=== PATIENT | female | born 1970 | race Caucasian/White ===

== ENCOUNTER → 2018-10-11 | Day surgery (SDC) | payer MEDICARE, MEDICAID ==
[~2018-10-11] MED LIST: LIDOCAINE 1% INJ-PF (10 MG/ML) 30 ML SDV ONE; LIDOCAINE 1%/EPINEPHRINE INJ 20 ML VIAL ONE
--- NOTE | 2018-10-13 12:36 | RADIOLOGY REPORT (SQ) ---
EXAM DESCRIPTION: STEREO BREAST BX; LEFT DIG DX MAMMO NO CHG COMPLETED DATE/TIME: 10/11/2018 1:38 pm; 10/11/2018 10:43 am REASON FOR STUDY: OTHER ABNORMAL AND INCONCLUSIVE FINDINGS ON DX IMAGING OF BREAST (R92.8); R92.8 S/ P US AND STEREO BX FOR CLIP PLACEMENTS R92.8 OTH ABN AND INCONCLUSIVE FINDINGS ON DX IMAGING OF [place] COMPARISON: Outside mammogram and ultrasound 08/31/2018 TECHNIQUE: Vacuum-assisted stereotactic-guided biopsy of the lesion in the left breast. Serial progr ess stereotactic and single digital images acquired. PROCEDURE: The procedure was discussed with the patient, including possible complications such as bleeding, infection, nondiagnostic sample or possible findings such as atypical ductal hyperplasia wh ich would require additional surgery. Possible clip placement was explained. The patient agreed t o the procedure. The patient was placed prone on the stereotactic table. The lesion in the breast was localized ster eotactically. The skin of the breast was prepped in sterile fashion. Superficial and deep local an esthesia was provided. A small incision was made in the skin and the biopsy probe was advanced to t he target. Using the vacuum-assisted core biopsy device, multiple core specimens were obtained. Continuous low dose infusion of local anesthesia was used during the procedure. A specimen radiograph was obtained. The radiograph demonstrated calcifications of concern in the bio psy tissue. Using znuijlef-be-qfhrkagu technique a pellet clip was deployed at the biopsy site. Mammographic image confirmed presence of the clip. The probe was then removed and hemostasis obtained with manua l compression. A compression bandage was applied. Postoperative instructions were explained to th e patient. POST-PROCEDURE TWO VIEW DIGITAL MAMMOGRAM: An additional two view mammogram was recorded in the [facility] mammographic suite. Marker clip is present at the stereotactic biopsy site, with a 2nd marker l aterally in the ultrasound-guided biopsy site. LIMITATIONS: None. FINDINGS: PATHOLOGY: Benign calcifications with fibroadenoma CONCORDANT: Yes. POST PROCEDURE MAMMOGRAMS FOR MARKER PLACEMENT: Yes IMPRESSION: SUCCESSFUL STEREOTACTIC-GUIDED BIOPSY OF THE LESION IN THE LEFT BREAST. BIOPSY RESULTS ARE CONCORDANT WITH IMAGING FINDINGS. BI-RADS 2, benign findings FOLLOW-UP: Please continue yearly bilateral screening mammography in July 2019 NOTIFICATION: Results were called to the patient 1230 hours 10/13/2018. She understands this is a shakila ign diagnosis, and that she should return to yearly bilateral screening mammography/tomosynthesis in July 2019. COMMENT: Patient medication list reviewed: Yes- Quality ID# [id number]:Eligible professional attests to doc umenting in the medical record they obtained, updated, or reviewed the patient's current medications. TECHNICAL DOCUMENTATION: JOB ID: [id number] [employer]- All Rights Reserved Reading location - IP/workstation name: [email or web address]
--- NOTE | 2018-10-13 12:39 | WOMENS IMAGING REPORT ---
EXAM DESCRIPTION: U/S BREAST BX COMPLETED DATE/TIME: 10/11/2018 11:01 am REASON FOR STUDY: R92.8 OTHER ABNORMAL AND INCONCLUSIVE FINDINGS ON DIAGNOSTIC IMAGING OF [place] R92.8 OTH ABN AND INCONCLUSIVE FINDINGS ON DX IMAGING OF [place] COMPARISON: Outside mammograms and ultrasound TECHNIQUE: The procedure was discussed with the patient and the patient agreed to proceed. The patient was scanned and the area of interest in the 3 o'clock position 6 cm from the nipple of th e left breast was localized. This correlates with the area of concern on prior imaging studies. This area was targeted for ultrasound-guided core biopsy. After sterile skin prep and 30 mL local lidocaine 1% for skin and deep tissue anesthesia, a 14 gauge coaxial core biopsy needle was used to obtain several cores of tissue from the lesion. Under ultraso und guidance, a ribbon clip was placed in the areas sampled. There were no immediate post-procedure complications. MAMMOGRAM: Post-procedure two view mammogram was acquired in the digital mammogram suite. The clip wa s in the expected location. No significant hematoma. Pathology yields a diagnosis of benign breast tissue with fibrocystic change and microcalcifications. No atypia or malignancy. Pathology is concordant. LIMITATIONS: None. FINDINGS: Ultrasound guided breast biopsy as described above. POST PROCEDURE MAMMOGRAMS FOR MARKER PLACEMENT: Yes IMPRESSION: ULTRASOUND-GUIDED CORE BIOPSY OF THE LEFT BREAST YIELDS A DIAGNOSIS OF benign fibrogland ular tissue with adenosis and microcalcifications. Negative for atypia or malignancy BI-RADS 2, benign findings COMMENT: Patient should return to yearly bilateral screening July 2019 COMMUNICATION: Results were called to the patient 1230 hours 10/13/2018. She understands this is a b enign diagnosis, and that she should return to yearly bilateral screening mammography/tomosynthesis i n July 2019. Patient medication list reviewed: Yes- Quality ID# [id number]:Eligible professional attests to documenting i n the medical record they obtained, updated, or reviewed the patient's current medications. TECHNICAL DOCUMENTATION: JOB ID: [id number] [email or web address]- All Rights Reserved Reading location - IP/workstation name: [email or web address]
== END ==
LOC: RAD 07:57
PROVIDERS: ATTEND Surgery
DX: N60.12 Diffuse cystic mastopathy of left breast (principal); N60.22 Fibroadenosis of left breast; R92.8 Other abnormal and inconclusive findings on diagnostic imaging of breast; R92.0 Mammographic microcalcification found on diagnostic imaging of breast
CPT/HCPCS: 88342 ×2; 88341 ×2; 88305 ×2; 19081; 19083; J3490 ×2

== ENCOUNTER → 2019-05-08 | Day surgery (SDC) | payer MEDICARE, MEDICAID ==
[~2019-05-08] MED LIST changes: +BUPIVACAINE HCL 0.5 % INJ/PF 30 ML SDV ONE; -LIDOCAINE 1%/EPINEPHRINE INJ 20 ML VIAL ONE; +LIDOCAINE 2% INJ (20 MG/ML) 20 ML MDV ONE; +METHYLPREDNISOLONE ACETATE INJ 40 MG/1 ML ML ONE
== END ==
LOC: RAD 09:18
PROVIDERS: ATTEND Pain Medicine Interventional Pain Medicine
DX: M47.816 Spondylosis without myelopathy or radiculopathy, lumbar region (principal)
CPT/HCPCS: J1030; J3490

== ENCOUNTER 2019-05-14 06:57 | Day surgery (SDC) | payer MEDICARE, MEDICAID ==
[2019-05-14 07:58] LABS: HEMOGLOBIN 10.5 g/dL (12.0-15.5); MEAN CORPUSCULAR HEMOGLOBIN 21.7 pg (27.0-33.4); MEAN CORPUSCULAR HGB CONC 31.8 g/dL (32.0-36.0); MEAN CORPUSCULAR VOLUME 68 fl (80-97); PLATELET COUNT 241 10^3/uL (150-450); RED BLOOD COUNT 4.84 10^6/uL (3.72-5.28); WHITE BLOOD COUNT 6.5 10^3/uL (4.0-10.5)
[2019-05-14 08:03] LABS: INTERNATIONAL RATION (INR) 0.91; PROTHROMBIN TIME 12.2 SEC (11.4-15.4)
[2019-05-14 08:04] LABS: PARTIAL THROMBOPLASTIN TIME 27.9 SEC (23.5-35.8)
[2019-05-14 08:15] LABS: POTASSIUM 3.9 mmol/L (3.6-5.0)
[2019-05-14] MEDS ORDERED: BUPIVACAINE HCL 0.5 % INJ/PF 30 ML SDV ONE (08:28)
[2019-05-14] MEDS ORDERED: METHYLPREDNISOLONE ACETATE INJ 40 MG/1 ML ML ONE (08:28)
[2019-05-14] MEDS ORDERED: LIDOCAINE 2% INJ (20 MG/ML) 20 ML MDV ONE (08:28)
[2019-05-14] MEDS ORDERED: MIDAZOLAM 2 MG/2 ML INJ ONE (08:55)
[2019-05-14] MEDS ORDERED: FENTANYL CITRATE INJ/PF 100 MCG/2 ML AMPUL ONE (08:55)
--- NOTE | 2019-05-14 10:21 | Operative Report ---
PREOPERATIVE DIAGNOSIS: Lumbar Spondylosis POSTOPERATIVE DIAGNOSIS: Lumbar Spondylosis PROCEDURE: Radiofrequency Ablation of medial branches - LT L3 L4 Dorsal primary ramus of L5. DATE OF PROCEDURE: May 14, 2019 ANESTHESIA: Local with IV sedation including midazolam and fentanyl COMPLICATIONS: None CONSENT: A full description of the procedure was provided including benefits as well as possible complications. All questions were answered and informed consent was given and signed. ASA guidelines for fasting were verified prior to sedation. PROCEDURE IN DETAIL The patient was brought into the fluoroscopy suite and positioned into the prone position on the fluoroscopy table and allowed to adjust to a position of comfort. A grounding pad was placed on the left thigh. The lumbar region was widely prepped with a chloraprep solution, allowed to air dry and draped in standard sterile surgical fashion. Local anesthesia was provided by 1 mL of 1 % lidocaine delivered with a 25 g needle. A 17g 100mm radiofrequency introducer needle was placed to the planned anatomic targets guided with intermittent fluoroscopy with a perpendicular approach to terminally place at the junction of the superior articular process and the transverse process of the left L4 L5 and the base of the sacral ala on the left for the L5 medial branch nerve. The stylets were removed and radiofrequency probes with a 4mm active tip were then inserted. Needle tip position of the probes was verified in the AP, oblique, and lateral views. At each site, the medial branch nerve was stimulated at 2 Hz to a maximum 1-2 volts determined to finalize safe needle and electrode placement. The patient was awake and responsive during this portion of the procedure. Each target was anesthetized with 1-2 mL of 2 % lidocaine for anesthesia for lesioning and then each target was lesioned at 80 degrees Celsius for 2 minutes and 30 seconds. Tissue impedences were noted to be between 250 and 500 Ohms. Electrodes were then removed and a solution containing 1 mL of 0.25% bupivacaine with 40 mg of Depo- Medrol was infiltrated at each site. Then needles were then removed and bandages placed over the needle placement sites, the patient then returned to the supine position on a stretcher and transported to the recovery room without hemodynamic, neurologic, or allergic reactions. Fluoroscopic images were printed for hard copy recording and digitally archived. POST PROCEDURE EVALUATION: The patient was comfortable in the recovery room. The patient is aware that pain may worsen before remitting and 4 - 6 weeks may be required prior to the onset of pain relief. IMPRESSION: 1. Technically successful left L3 L4 L5 medial branch radiofrequency neurotomy for denervation on the left without complication. 2. RTC in 2 weeks. 3. Estimated Blood Loss: None
[2019-05-14 11:33] VITALS: BP 125/71
== END 2019-05-14 11:00 | disposition home or self-care (01) ==
LOC: RAD 06:57
PROVIDERS: ATTEND Pain Medicine Interventional Pain Medicine
DX: M47.817 Spondylosis without myelopathy or radiculopathy, lumbosacral region (principal)
CPT/HCPCS: 36415; 82962; 84520; 84132; 84703; 85027; 85610; 85730; 64636; 64635; 99152; 99153; J2250; J3490 ×2; J3010; J1030

== ENCOUNTER 2019-10-09 11:51 | Emergency (ER) | payer MEDICARE, MEDICAID ==
--- NOTE | 2019-10-09 13:05 | ER Document Report ---
ED Medical Screen (RME) - General Chief Complaint: High Blood Pressure Stated Complaint: HIGH BLOOD PRESSURE, PALPITATIONS Time Seen by Provider: 10/09/19 13:01 Primary Care Provider: BETITO GARCIA MD [Primary Care Provider] - Follow up as needed Mode of Arrival: Ambulatory Information source: Patient Notes: Patient presents stating that she has had palpitations for the past 9 days. Patient reports occasional shortness of breath. Patient has had a cough for the past 2 weeks. Patient does complain of occasional nausea but no vomiting. Patient denies any chest discomfort. Patient does report a history of hypertension and anxiety. I have greeted and performed a rapid initial assessment of this patient. A comprehensive ED assessment and evaluation of the patient, analysis of test results and completion of the medical decision making process will be conducted by additional ED providers. TRAVEL OUTSIDE OF THE [place] IN LAST 30 DAYS: No - Related Data Allergies/Adverse Reactions: No Known Allergies Allergy (Verified 10/09/19 13:01) Past Medical History - Past Medical History Cardiac Medical History: Reports: Hx Hypertension Denies: Hx Coronary Artery Disease, Hx Heart Attack Pulmonary Medical History: Denies: Hx Asthma, Hx Bronchitis, Hx COPD, Hx Pneumonia Neurological Medical History: Denies: Hx Cerebrovascular Accident, Hx Seizures Musculoskeltal Medical History: Reports Hx Arthritis - Immunizations Hx Diphtheria, Pertussis, Tetanus Vaccination: No Physical Exam - Vital signs Vitals: Temp Pulse Resp BP Pulse Ox 98.0 F 52 L 18 156/83 H 96 10/09/19 12:37 10/09/19 12:37 10/09/19 12:37 10/09/19 12:37 10/09/19 12:37 - Cardiovascular Rhythm: Irregularly irregular Heart sounds: S1 appreciated, S2 appreciated Course - Vital Signs Vital signs: Temp Pulse Resp BP Pulse Ox 98.0 F 52 L 18 156/83 H 96 10/09/19 12:37 10/09/19 12:37 10/09/19 12:37 10/09/19 12:37 10/09/19 12:37 Doctor's Discharge - Discharge Referrals: BETITO GARCIA MD [Primary Care Provider] - Follow up as needed
--- NOTE | 2019-10-09 14:12 | RADIOLOGY REPORT (SQ) ---
EXAM DESCRIPTION: CHEST 2 VIEWS COMPLETED DATE/TIME: 10/09/2019 1:54 pm REASON FOR STUDY: palpitations COMPARISON: None. EXAM PARAMETERS: NUMBER OF VIEWS: two views TECHNIQUE: Digital Frontal and Lateral radiographic views of the chest acquired. RADIATION DOSE: NA LIMITATIONS: none FINDINGS: LUNGS AND PLEURA: No opacities, masses or pneumothorax. No pleural effusion. MEDIASTINUM AND HILAR STRUCTURES: No masses or contour abnormalities. HEART AND VASCULAR STRUCTURES: Heart normal size. No evidence for failure. BONES: No acute findings. HARDWARE: None in the chest. OTHER: No other significant finding. IMPRESSION: NO ACUTE RADIOGRAPHIC FINDING IN THE CHEST. TECHNICAL DOCUMENTATION: JOB ID: [id number] [employer]- All Rights Reserved Reading location - IP/workstation name: [email or web address]
[2019-10-09 14:14] LABS: ABSOLUTE BASOPHILS # (AUTO) 0.1 10^3/uL (0.0-0.2); ABSOLUTE EOSINOPHILS # (AUTO) 0.2 10^3/uL (0.0-0.6); ABSOLUTE LYMPHOCYTES (AUTO) 2.5 10^3/uL (0.5-4.7); ABSOLUTE MONOCYTES (AUTO) 0.6 10^3/uL (0.1-1.4); ABSOLUTE NEUT (AUTO) 5.1 10^3/uL (1.7-8.2); BASOPHILS % (AUTO) 1.3 % (0-2); EOSINOPHILS % (AUTO) 2.9 % (0-6); HEMATOCRIT 34.6 % (36.0-47.0); HEMOGLOBIN 11.1 g/dL (12.0-15.5); LYMPHOCYTES % (AUTO) 29.7 % (13-45); MEAN CORPUSCULAR HEMOGLOBIN 21.9 pg (27.0-33.4); MEAN CORPUSCULAR HGB CONC 32.1 g/dL (32.0-36.0); MEAN CORPUSCULAR VOLUME 68 fl (80-97); MONOCYTES % (AUTO) 6.7 % (3-13); PLATELET COUNT 343 10^3/uL (150-450); RED BLOOD COUNT 5.06 10^6/uL (3.72-5.28); RED CELL DISTRIBUTION WIDTH 18.2 % (11.5-14.0); SEGMENTED NEUTROPHILS % (AUTO) 59.4 % (42-78); TOTAL CELLS COUNTED % (AUTO) 100 %; WHITE BLOOD COUNT 8.5 10^3/uL (4.0-10.5)
[2019-10-09 14:34] LABS: ALBUMIN 4.3 g/dL (3.5-5.0); ALKALINE PHOSPHATASE 73 U/L (38-126); ANION GAP 13 (5-19); ASPARTATE AMINO TRANSFERASE 50 U/L (14-36); BILIRUBIN,DIRECT 0.3 mg/dL (0.0-0.4); BILIRUBIN,TOTAL 0.3 mg/dL (0.2-1.3); BLOOD UREA NITROGEN 19 mg/dL (7-20); CALCIUM 9.6 mg/dL (8.4-10.2); CARBON DIOXIDE 28 mmol/L (22-30); CHLORIDE 100 mmol/L (98-107); GLUCOSE 111 mg/dL (75-110); TOTAL PROTEIN 7.8 g/dL (6.3-8.2)
[2019-10-09 14:43] LABS: NT PRO BNP 272 pg/mL (<125)
[2019-10-09 14:46] LABS: TROPONIN I < 0.012 ng/mL
[2019-10-09] MEDS ORDERED: CLONAZEPAM 1 MG TABLET PO ONE (16:12)
[2019-10-09] MEDS: NORMAL SALINE 1000 ML 1,000 ML IV ONE ×2 (16:31→18:45)
--- NOTE | 2019-10-09 16:46 | ER Document Report ---
ED General - General Chief Complaint: High Blood Pressure Stated Complaint: HIGH BLOOD PRESSURE, PALPITATIONS Time Seen by Provider: 10/09/19 13:01 Primary Care Provider: CA JORDAN MD [ACTIVE STAFF] - Follow up in 3-5 days BETITO GARCIA MD [NO LOCAL MD] - Follow up tomorrow Mode of Arrival: Ambulatory Notes: 49-year-old female with history of anxiety and hypertension presents for palpit ations for the past 9 days. Patient states she has had intermittent nausea and occasional dyspnea which feels like an anxiety attack. Patient states she usually takes clonazepam 1 mg as needed for anxiety. Patient denies any chest pain, abdominal pain, vomiting. TRAVEL OUTSIDE OF THE [place] IN LAST 30 DAYS: No - Related Data Allergies/Adverse Reactions: No Known Allergies Allergy (Verified 10/09/19 13:01) Past Medical History - General Information source: Patient - Social History Smoking Status: Unknown if Ever Smoked Chew tobacco use (# tins/day): No Frequency of alcohol use: None Drug Abuse: None Family History: None Patient has suicidal ideation: No Patient has homicidal ideation: No - Past Medical History Cardiac Medical History: Reports: Hx Hypertension Denies: Hx Coronary Artery Disease, Hx Heart Attack Pulmonary Medical History: Denies: Hx Asthma, Hx Bronchitis, Hx COPD, Hx Pneumonia Neurological Medical History: Denies: Hx Cerebrovascular Accident, Hx Seizures Musculoskeletal Medical History: Reports Hx Arthritis - Immunizations Hx Diphtheria, Pertussis, Tetanus Vaccination: No Review of Systems - Review of Systems Notes: Constitutional: Negative for fever. HENT: Negative for sore throat. Eyes: Negative for visual changes. Cardiovascular: Positive for palpitations. Negative for chest pain. Respiratory: Positive for shortness of breath. Gastrointestinal: Positive for nausea. Negative for abdominal pain, vomiting or diarrhea. Genitourinary: Negative for dysuria. Musculoskeletal: Negative for back pain. Skin: Negative for rash. Neurological: Negative for headaches, weakness or numbness. 10 point ROS negative except as marked above and in HPI. Physical Exam - Vital signs Vitals: Temp Pulse Resp BP Pulse Ox 98.0 F 52 L 18 156/83 H 96 10/09/19 12:37 10/09/19 12:37 10/09/19 12:37 10/09/19 12:37 10/09/19 12:37 - Notes Notes: GENERAL: Well-appearing, well-nourished and anxious. HEAD: Atraumatic, normocephalic. EYES: Extraocular movements intact, sclera anicteric, conjunctiva are normal. NECK: Normal range of motion, supple without lymphadenopathy or JVD. LUNGS: Breath sounds clear to auscultation bilaterally and equal. No wheezes rales or rhonchi. HEART: Regular rate and rhythm without murmurs, rubs or gallops. ABDOMEN: Soft, nontender. No guarding, no rebound. No masses appreciated. EXTREMITIES: Normal range of motion, no pitting or edema. No clubbing or cyanosis. NEUROLOGICAL: Cranial nerves II through XII grossly intact. Normal speech, normal gait. PSYCH: Normal mood, normal affect. SKIN: Warm, Dry, normal turgor, no rashes or lesions noted. Course - Re-evaluation Re-evalutation: 10/09/19 49-year-old female with history of hypertension and anxiety presents with palpitations for the past 9 days. EKG shows sinus tachycardia. Initial troponin is negative. Patient is not hypoxic. Very minimally tachycardic. IV 1 L bolus ordered. 1 dose of her home anxiety medicine was also ordered. Chest x-ray is negative. Second troponin was ordered and added on TSH was also ordered. 10/09/19 18:02 with TSH WNL. 10/09/19 2nd trop negative. Pt's EKG shows sinus tachycardia. Pt given close fo llow up with home insurance agent. Strict return precautions given. All questions/concerns addressed prior to discharge. - Vital Signs Vital signs: Temp Pulse Resp BP Pulse Ox 97.9 F 52 L 16 144/78 H 98 10/09/19 18:49 10/09/19 12:37 10/09/19 18:49 10/09/19 18:49 10/09/19 18:49 - Laboratory Result Diagrams: 10/09/19 13:58 10/09/19 13:58 Laboratory results interpreted by me: 10/09/19 10/09/19 10/09/19 13:58 13:58 13:58 Hgb 11.1 L Hct 34.6 L MCV 68 L MCH 21.9 L RDW 18.2 H Glucose 111 H AST 50 H NT-Pro-B Natriuret Pep 272 H Discharge - Discharge Clinical Impression: Palpitation Condition: Stable Disposition: HOME, SELF-CARE Instructions: Palpitations (Irregular or Rapid Heartrate) ([facility]) Additional Instructions: 2 sets of cardiac enzymes were negative. Your thyroid level was also within normal limits. The rest of your work-up was reassuring today. Please follow-up with the home insurance agent, Dr. Jordan, in 3 to 5 days. Please follow-up with your primary care doctor either tomorrow in the next few days. Return immediately to ER if you start having any worsening symptoms, including worsening palpitations, shortness of breath, chest pain, fever, leg swelling, nausea/vomiting, abdominal pain, or any other symptoms that are concerning to you. Referrals: BETITO GARCIA MD [NO LOCAL MD] - Follow up tomorrow CA JORDAN MD [ACTIVE STAFF] - Follow up in 3-5 days
--- NOTE | 2019-10-09 17:18 | EKG REPORT ---
SEVERITY:- ABNORMAL ECG - SINUS TACHYCARDIA SUPRAVENTRICULAR BIGEMINY NONSPECIFIC INTRAVENTRICULAR CONDUCTION DELAY : Confirmed by: Delmar Gonsalves MD 09-Oct-2019 17:17:38
--- NOTE | 2019-10-09 17:19 | EKG REPORT ---
SEVERITY:- OTHERWISE NORMAL ECG - SINUS RHYTHM ATRIAL PREMATURE COMPLEX : Confirmed by: Delmar Gonsalves MD 09-Oct-2019 17:18:23
[2019-10-09 18:53] VITALS: BP 144/78
== END 2019-10-09 18:55 | disposition home or self-care (01) ==
LOC: ER 11:51
DX: R00.2 Palpitations (principal); F41.9 Anxiety disorder, unspecified; I10 Essential (primary) hypertension; R11.0 Nausea; R06.02 Shortness of breath; R00.0 Tachycardia, unspecified
CPT/HCPCS: 36415; 71046; 80053; 83880; 84443; 84484; 85025; 93005; 93010; 99285; J7030

== ENCOUNTER → 2019-10-09 | Outpatient (CLI) | payer MEDICARE, MEDICAID | LOC: WI 10:00 | PROVIDERS: ATTEND Surgery | DX: Z12.31 Encounter for screening mammogram for malignant neoplasm of breast (principal) | CPT/HCPCS: 77063; 77067 ==